=== PATIENT | female | born 1985 | race Caucasian/White ===

== ENCOUNTER → 2017-08-31 | Outpatient (REF) ==
[2016-08-18 09:05] VITALS: BMI 48.7
[~2017-08-31] MED LIST: ARI2; CEPH-13 PO; CITA-141; DIPH-740 PO; FERR325C2; GADOBENATE 529MG/1ML 15ML VIAL IVP ONE; IBUP800T37 PO; LEVO-3 PO; LEVO50TA89; NORE-142 PO; OMEP10CA38 PO; OXYC-865 PO; PER PO; PRED20TA6 PO; PROM-110 PO; VIT1CAPS49 PO
--- NOTE | 2017-08-31 13:09 | RADIOLOGY IMAGING REPORT ---
[facility] PATIENT NAME: Shantel Zepeda : 1985 MR: [id number] V: [id number] EXAM DATE: ORDERING PHYSICIAN: ARIANE SUAREZ TECHNOLOGIST: Location: [facility] Patient: Shantel Zepeda : 1985 Visit/Account:[id number] Date of Sevice: 08/31/2017 BRAIN W W/O CONTRAST Comparisons: Head CT scan without contrast dated February 19, 2013 Additional pertinent history: Swelling around the optic nerves. TECHNIQUE: Multiplanar, multisequence brain MRI was performed with and without gadolinium contrast. CONTRAST: 15 ml of MultiHance. FINDINGS: Sagittal midline structures and craniocervical junction: Negative. Midline shift: None. Ventricles: Negative. Brain parenchyma: Diffusion weighted imaging: Negative. Gradient sequence: Negative. T2 weighted FLAIR images: Negative. Extra-axial spaces: Negative. Dural venous sinuses and major arterial flow voids: Negative. Intracranial enhancement: Negative.. Mastoid air cells and paranasal sinuses: Negative. Surrounding soft tissues and orbits: Negative. Impression: Normal brain MRI with and without contrast. Report Dictated By: Carlito Mae MD at 08/31/2017 1:02 PM Report E-Signed By: Carlito Mae MD at 08/31/2017 1:06 PM WSN:[email or web address]
== END ==
LOC: MRI 04:10
PROVIDERS: ATTEND Family Medicine
DX: H47.10 Unspecified papilledema (principal)
CPT/HCPCS: 70553; A9577

== ENCOUNTER → 2018-04-03 | Outpatient (REF) ==
[2016-08-18 09:05] VITALS: BMI 48.7
[~2018-04-03] MED LIST changes: -GADOBENATE 529MG/1ML 15ML VIAL IVP ONE
--- NOTE | 2018-04-03 14:47 | RADIOLOGY IMAGING REPORT ---
FACILITY: [facility] - [place] PATIENT NAME: Shantel Zepeda : 1985 MR: [id number] V: [id number] EXAM DATE: ORDERING PHYSICIAN: ARIANE SUAREZ TECHNOLOGIST: Location: [facility] [place] Patient: Shantel Zepeda : 1985 Visit/Account:[id number] Date of Sevice: 04/03/2018 WRIST BILAT 3 OR MORE VIEWS Indication: Right wrist pain. Comparison: None. Findings: Left wrist: Carpal bones are intact. There is a smooth ossified fragment distal to the ulnar styloid process, which may represent old fracture. There is no evidence of acute fracture. Soft tissues ar e normal. Right wrist: There is a transverse lucency at the waist of the scaphoid, which likely represents a nu trient channel. There is no evidence of discrete cortical disruption or fracture. Distal radius and ulna are normal. Soft tissues are unremarkable. IMPRESSION: 1. Left wrist demonstrate old fracture at the ulnar styloid process. Left wrist is otherwise normal . 2. Right wrist demonstrates no evidence of acute fracture. There is a small lucency at the waist of the scaphoid, which is felt to be a projection change or nutrient channel. If there is high suspici on for acute scaphoid fracture, MRI could be obtained for further evaluation. Report Dictated By: Sami Mcgraw at 04/03/2018 2:38 PM Report E-Signed By: Sami Mcgraw at 04/03/2018 2:42 PM WSN:[email or web address]
--- NOTE | 2018-04-03 14:47 | RADIOLOGY IMAGING REPORT ---
FACILITY: [facility] - [place] PATIENT NAME: Shantel Zepeda : 1985 MR: [id number] V: [id number] EXAM DATE: ORDERING PHYSICIAN: ARIANE SUAREZ TECHNOLOGIST: Location: Patient: Shantel Zepeda : 1985 Visit/Account:[id number] Date of Sevice: 04/03/2018 KNEE 3 VIEW RIGHT Indication: Right knee pain for 3 months, getting worse. Comparison: None. Findings: Distal femur, proximal tibia and fibula, the patella demonstrate normal mineralization and alignment. Soft tissues are unremarkable. IMPRESSION: Normal right knee radiograph. Report Dictated By: Sami Mcgraw at 04/03/2018 2:42 PM Report E-Signed By: Sami Mcgraw at 04/03/2018 2:43 PM WSN:[email or web address]
== END ==
LOC: RAD 10:41
PROVIDERS: ATTEND Family Medicine
DX: M25.561 Pain in right knee (principal); G56.03 Carpal tunnel syndrome, bilateral upper limbs